=== PATIENT | female | born 1975 | race Caucasian/White ===

== ENCOUNTER → 2016-08-01 | Outpatient (CLI) | payer OTHER | LOC: CIMAGING 08:41 | PROVIDERS: ATTEND Physician Assistant Medical | DX: R10.11 Right upper quadrant pain (principal); K43.2 Incisional hernia without obstruction or gangrene | CPT/HCPCS: 76700-PO ==

== ENCOUNTER → 2016-08-07 | Outpatient (CLI) | payer OTHER | LOC: FIMAGING 10:09 | PROVIDERS: ATTEND Internal Medicine | DX: K82.8 Other specified diseases of gallbladder (principal) | CPT/HCPCS: 78227; A9537 ==

== ENCOUNTER 2016-08-09 05:44 | Day surgery (SDC) | payer OTHER ==
[2016-08-09] MEDS ORDERED: cefOXitin SODIUM 1 GM in D5W 50 ML IV ONE (06:00)
[2016-08-09] MEDS ORDERED: CEFAZOLIN 1 GM/DEXTROSE/50 ML BAG IV ONE (06:09)
[2016-08-09] MEDS ORDERED: LIDOCAINE 1% 2 ML INJ ONE (06:09)
[2016-08-09] MEDS ORDERED: ceFAZolin 1 GM/5 ML SYR ONE (06:44)
[2016-08-09] MEDS ORDERED: HEPARIN 1000 UNIT/1 ML MDV ONE (06:44)
[2016-08-09] MEDS ORDERED: BUPIVACAINE 0.5% 30 ML SDV ONE (06:44)
[2016-08-09] MEDS ORDERED: MIDAZOLAM 2 MG/2 ML VIAL ONE (07:12)
[2016-08-09] MEDS ORDERED: SCOPOLAMINE HYDROBROMIDE 1.5 MG PATCH TD ONE ×2 (07:12→07:30)
[2016-08-09 07:13] LABS: ALBUMIN 4.5 g/dL (3.5-5.0); BILIRUBIN,TOTAL 1.3 mg/dL (0.1-1.4); BILIRUBIN-CONJUGATED 0.3 mg/dL (0.0-0.5); TOTAL PROTEIN 7.3 g/dL (6.3-8.2)
[2016-08-09] MEDS ORDERED: ONDANSETRON 4 MG/2 ML VIAL ONE (07:16)
[2016-08-09] MEDS ORDERED: ROCURONIUM 50 MG/5 ML VIAL ONE (07:16)
[2016-08-09] MEDS ORDERED: PROPOFOL/EMULSION 500 MG/50 ML BOTTLE IV ONE (07:16)
[2016-08-09] MEDS ORDERED: DEXAMETHASONE 4 MG/ML VIAL ONE (07:16)
[2016-08-09] MEDS ORDERED: PROPOFOL 200 MG/20 ML VIAL ONE (07:16)
[2016-08-09] MEDS ORDERED: GLYCOPYRROLATE 0.2 MG/1 ML VIAL ONE (07:17)
[2016-08-09] MEDS ORDERED: ceFAZolin 1 GM VIAL ONE (07:48)
[2016-08-09] MEDS ORDERED: SUGAMMADEX SODIUM 200 MG/2 ML VIAL IVP ONE (09:10)
[2016-08-09] MEDS ORDERED: fentaNYL 100 MCG/2 ML INJ ONE (09:46)
[2016-08-09] MEDS ORDERED: OXYCODONE/APAP 5/325 TAB ONE ×2 (09:52→10:47)
[2016-08-09] MEDS ORDERED: HYDROmorphONE/DILAUDID 2 MG/ML INJ ONE (10:48)
== END 2016-08-09 12:05 | disposition home or self-care (01) ==
LOC: FSGY 05:44
PROVIDERS: ATTEND Surgery
DX: K80.10 Calculus of gallbladder with chronic cholecystitis without obstruction (principal); K43.2 Incisional hernia without obstruction or gangrene
CPT/HCPCS: C1781; J0690; J0697; J1100; J1170; J2250; J2405; J2704; J3010

== ENCOUNTER 2016-10-16 17:54 | Emergency (ER) | payer OTHER ==
--- NOTE | 2016-10-16 17:57 | EDPHY ---
H & P HPI/ROS: HPI CHIEF COMPLAINT: Right lower extremity swelling and pain HISTORY OF PRESENT ILLNESS: This patient very pleasant 41-year-old female denies any daily medical problems she did recently have gallbladder surgery and inguinal hernia repair by Dr. Mcneil, she presents to the ER with pain in her calf,and thigh pain. She has noticed this discomfort for the past 3 days. She denies any chest pain or shortness of breath. Denies pleuritic pain. Denies fever. Additionally she noticed some red blotchy areas upper right lower extremity. They are in clusters. There has 3 separate discrete areas. They are painful to palpation. No fever. No additional rash. She is concerned she may have a DVT and came to the emergency room for evaluation. Past Medical History: No medical history Past Surgical History: Recent gallbladder removal and inguinal hernia repair Social History: Denies daily use drugs alcohol tobacco products. Family History: Noncontributory ROS REVIEW OF SYSTEMS: A comprehensive 10 point review of systems is otherwise negative aside from elements mentioned in the history of present illness. Exam Constitutional appears well nontoxic, triage nursing summary reviewed, vital signs reviewed, awake/alert. Eyes normal conjunctivae and sclera, EOMI, PERRLA. HENT normal inspection, atraumatic, moist mucus membranes, no epistaxis, neck supple/ no meningismus, no raccoon eyes. Respiratory clear to auscultation bilaterally, normal breath sounds, no respiratory distress, no wheezing. Cardiovascular rate normal, regular rhythm, no murmur, no edema, distal pulses normal. Gastrointestinal soft, non-tender, no rebound, no guarding, normal bowel sounds, no distension, no pulsatile mass. Genitourinary no CVA tenderness. Musculoskeletal right lower extremity: Neurovascular intact good distal pulse , good cap refill, mild tender palpation posterior calf and popliteal space, and posterior thigh, additionally there are erythematous painful lesions maculopapular discrete circular in Three discreet areas. 1. popliteal space, Two. right lower calf and 3. lower calf, No blisters, no vesicles. Painful to palpation. No warmth, no petechia. no midline vertebral tenderness, full range of motion, no calf swelling, no tenderness of extremities, no meningismus, good pulses, neurovascularly intact. Skin pink, warm, & dry, no rash, skin atraumatic. Neurologic awake, alert and oriented x 3, AAOx3, moves all 4 extremities equally, motor intact, sensory intact, CN II-XII intact, normal cerebellar, normal vision, normal speech. Psychiatric normal mood/affect. Heme/Lymph/Immune no lymphadenopathy. Differential Diagnosis: Includes but is not limited to in a particular order DVT, leg infection, cellulitis, Zoster Medical Decision Making: Plan for this patient ultrasound right lower extremity rule out DVT. Re-evaluation: Ultrasound reviewed no DVT. Updated patient. Spoke with patient's who is a local physician. Went over treatment plan with anti-inflammatory pain medicine Keflex. Agreeable with this plan understands return emergency room if there is worsening pain, swelling, redness, fever or any questions or concerns. Source: Patient - Personal History Tetanus Vaccine Date: < 10 YEARS - Medical/Surgical History Hx Asthma: No Hx Chronic Respiratory Disease: No Hx Diabetes: No Hx Cardiac Disease: No Hx Renal Disease: No Hx Cirrhosis: No Hx Alcoholism: No Hx HIV/AIDS: No Hx Splenectomy or Spleen Trauma: No Other PMH: 08/04 ROBOTIC HYSTERECTOMY, MENINGITIS - Social History Smoking Status: Never smoked Constitutional: Initial Vital Signs Temperature (C) 36.9 C 10/16/16 18:06 Heart Rate 98 10/16/16 18:06 Respiratory Rate 18 10/16/16 18:06 Blood Pressure 131/80 H 10/16/16 18:06 O2 Sat (%) 97 10/16/16 18:06 O2 Delivery Mode Room Air Allergies/Adverse Reactions: hydrocodone bitartrate [From Vicodin] Allergy (Severe, Verified 10/16/16 18:05) SWOLLEN TONGUE Home Medications: Medication Instructions Recorded Cephalexin [Keflex] 500 mg PO Q6H #28 cap 10/16/16 Ibuprofen [Motrin (*)] 800 mg PO Q6-8PRN #30 tab 10/16/16 Medical Decision Making - Diagnostics Imaging Results: Imaging Impressions Extremity Venous Study 10/16/16 18:04 Impression: No deep venous thrombosis right leg. Findings and recommendations discussed with Emergency Department physician, Kody Dey MD at 18:39 hour, 10/16/2016. Final report concurs with initial preliminary interpretation. Departure - Departure Disposition: Home, Routine, Self-Care Clinical Impression: Leg pain Qualifiers: Laterality: right Qualified Code(s): M79.604 - Pain in right leg Condition: Good Instructions: Leg Pain (ED) Additional Instructions: 1. Return emergency room if you have any worsening symptoms questions or concerns includes worsening leg pain swelling or fever. Referrals: Herson Solano MD [Primary Care Provider] - As per Instructions Prescriptions: Cephalexin [Keflex] 500 mg PO Q6H #28 cap Ibuprofen [Motrin (*)] 800 mg PO Q6-8PRN #30 tab
[2016-10-16 18:07] VITALS: TEMP 98.4
[2016-10-16] MEDS ORDERED: CEPHALEXIN 500MG PREPACK#4 BTL TAKEHOME ONE (19:01)
[2016-10-16] MEDS ORDERED: CEPHALEXIN 500 MG CAP PO ONE (19:01)
[2016-10-16] MEDS ORDERED: IBUPROFEN 200 MG TAB PO ONE (19:01)
[2016-10-16 19:12] VITALS: BP 128/74; PULSE 89; RESP 16; O2SAT 98
== END 2016-10-16 19:12 | disposition home or self-care (01) ==
LOC: CED 17:54
DX: M79.604 Pain in right leg (principal)
CPT/HCPCS: 93971-PO

== ENCOUNTER → 2017-04-23 | Outpatient (CLI) | payer OTHER | LOC: CIMAGING 18:40 | PROVIDERS: ATTEND Internal Medicine | DX: R05 Cough (principal); R07.9 Chest pain, unspecified | CPT/HCPCS: 71046-PO ==

== ENCOUNTER → 2018-03-09 | Outpatient (CLI) | payer OTHER | LOC: CIMAGING 08:55 | PROVIDERS: ATTEND Internal Medicine | DX: R10.2 Pelvic and perineal pain (principal) | CPT/HCPCS: 76856-PO ==

== ENCOUNTER → 2018-03-27 | Outpatient (CLI) | payer OTHER ==
[~2018-03-27] MED LIST: IOPAMIDOL (ISOVUE-370) 150 ML BTL IV ONE
== END ==
LOC: CIMAGING 11:12
PROVIDERS: ATTEND Internal Medicine
DX: N83.292 Other ovarian cyst, left side (principal); K59.00 Constipation, unspecified; Z90.49 Acquired absence of other specified parts of digestive tract; Z90.710 Acquired absence of both cervix and uterus
CPT/HCPCS: 74177-PO; Q9967

== ENCOUNTER 2018-04-17 15:53 | Emergency (ER) | payer OTHER ==
[2018-04-17] MEDS ORDERED: LORazepam 2 MG/ML INJ IVP ONE (16:18)
[2018-04-17] MEDS ORDERED: DIAZEPAM 5 MG TAB PO ONE ×2 (16:20→17:01)
[2018-04-17] MEDS ORDERED: fentaNYL 100 MCG/2 ML INJ IVP ONE ×3 (16:21→17:00)
--- NOTE | 2018-04-17 16:24 | EDPHY ---
H & P Stated Complaint: back pain Time Seen by Provider: 04/17/18 15:59 HPI/ROS: 43 yo F presents complaining of severe lower back pain that began suddenly while transferring a basket of laundry. She felt a sudden pop and then had severe lower back pain. No numbness or tingling in extremities. No loss of bowel or bladder control. Patient denies prior history of back issues or back pain. Review of systems As per HPI-lower back pain General no fever no chills no weakness HEENT no eye pain no eye discharge. No eye redness, no sore throat Respiratory no cough, no shortness of breath Cardiac no chest pain, no peripheral edema GI no abdominal pain, no diarrhea, no constipation, no nausea, no vomiting no flank pain, no hematuria, no dysuria Musculoskeletal no myalgias, no joint pain Heme no easy bruising, no easy bleeding Endo no polyuria, no polydipsia Skin no rashes, no pruritus Neuro no syncope, no dizziness, no headaches Psych is no suicidal ideation, no homicidal ideation Source: Patient Exam Limitations: No limitations - Personal History LMP (Females 10-55): Hysterectomy Current Tetanus/Diphtheria Vaccine: Yes Current Tetanus Diphtheria and Acellular Pertussis (TDAP): Yes Tetanus Vaccine Date: < 10 YEARS - Medical/Surgical History Hx Asthma: No Hx Chronic Respiratory Disease: No Hx Diabetes: No Hx Cardiac Disease: No Hx Renal Disease: No Hx Cirrhosis: No Hx Alcoholism: No Hx HIV/AIDS: No Hx Splenectomy or Spleen Trauma: No Other PMH: 6/4 ROBOTIC HYSTERECTOMY, MENINGITIS - Family History Significant Family History: No pertinent family hx - Social History Smoking Status: Never smoked Alcohol Use: None Drug Use: None - Physical Exam Exam: 43-year-old female alert and oriented in severe distress secondary to back pain Atraumatic normocephalic Neck supple Lungs clear to auscultation bilaterally Heart regular rate and rhythm Abdomen nondistended NABS Back-no step-offs, positive midline lumbar spine tenderness, positive paralumbar tenderness with a mild scoliosis suggestive of back spasm No rash, no ecchymosis, no swelling Extremities No cyanosis clubbing or edema DTRs intact bilaterally Constitutional: Initial Vital Signs Temperature (C) 37.0 C 04/17/18 16:09 Heart Rate 94 04/17/18 16:09 Respiratory Rate 20 04/17/18 16:09 Blood Pressure 131/82 H 04/17/18 16:09 O2 Sat (%) 99 04/17/18 16:09 O2 Delivery Mode Room Air Allergies/Adverse Reactions: hydrocodone bitartrate [From Vicodin] Allergy (Severe, Verified 04/17/18 16:08) SWOLLEN TONGUE Home Medications: Medication Instructions Recorded Ibuprofen [Motrin (*)] 800 mg PO Q6-8PRN #30 tab 10/16/16 Diazepam [Valium 5 MG (*)] 5 mg PO TID PRN #15 tab 04/17/18 oxyCODONE/APAP 5/325 [Percocet 1 - 2 tab PO Q12H PRN #20 tab 04/17/18 5/325 (*)] Medical Decision Making - Diagnostics Imaging Results: Imaging Impressions Lumbar Spine X-Ray 04/17/18 17:25 Impression:Stable lumbar spine radiographs. No acute fracture identified. Degenerative disk disease at L5-S1. ED Course/Re-evaluation: Pt seen and evaluated for severe lower back pain sudden onset. Exam consistent with back muscle spasm. Pt with severe pain so we got iv access to give pain medication and a muscle relaxant. pt given tordol 15mg, diazepam 5 mg ivp, fentanyl 50 mcg Impression Lower back muscle spasm Plan dc home rx diazepam rx percocet f/u pcp Differential Diagnosis: Differential diagnosis considered but not limited to Back muscle spasm, disc herniation, lower back pain, vertebral compression fracture, kidney stones - Data Points Medications Given: Discontinued Medications Diazepam (Valium) 2.5 mg PO EDNOW ONE Stop: 04/17/18 16:21 Last Admin: 04/17/18 17:06 Dose: Not Given Diazepam (Valium) 2.5 mg PO EDNOW ONE Stop: 04/17/18 17:02 Last Admin: 04/17/18 17:06 Dose: Not Given Diazepam (Valium) 2.5 mg IVP EDNOW ONE Stop: 04/17/18 17:02 Last Admin: 04/17/18 17:07 Dose: 2.5 mg Fentanyl (Sublimaze) 25 mcg IVP EDNOW ONE Stop: 04/17/18 16:22 Last Admin: 04/17/18 16:40 Dose: 25 mcg Fentanyl (Sublimaze) 25 mcg IVP EDNOW ONE Stop: 04/17/18 17:00 Last Admin: 04/17/18 17:04 Dose: 25 mcg Fentanyl (Sublimaze) 25 mcg IVP EDNOW ONE Stop: 04/17/18 17:01 Last Admin: 04/17/18 17:15 Dose: Not Given Ketorolac Tromethamine (Toradol) 15 mg IVP EDNOW ONE Stop: 04/17/18 17:01 Last Admin: 04/17/18 17:13 Dose: 15 mg Ondansetron HCl (Zofran) 4 mg IVP EDNOW ONE Stop: 04/17/18 17:15 Last Admin: 04/17/18 17:15 Dose: 4 mg Departure - Departure Disposition: Home, Routine, Self-Care Clinical Impression: Lower back pain, Spasm of back muscles Condition: Good Instructions: Acute Low Back Pain (ED), Muscle Spasm (ED) Referrals: Pam Armendariz MD [Primary Care Provider] - As per Instructions Prescriptions: Diazepam [Valium 5 MG (*)] 5 mg PO TID PRN #15 tab PRN Reason: Spasms oxyCODONE/APAP 5/325 [Percocet 5/325 (*)] 1 - 2 tab PO Q12H PRN #20 tab PRN Reason: Pain, Severe
[2018-04-17] MEDS ORDERED: DIAZEPAM 5 MG/ML 1 ML SYR ONE ×2 (16:30→16:51)
[2018-04-17] MEDS ORDERED: ONDANSETRON 4 MG/2 ML VIAL ONE (16:41)
[2018-04-17] MEDS ORDERED: fentaNYL 100 MCG/2 ML INJ ONE (16:51)
[2018-04-17] MEDS ORDERED: KETOROLAC 15 MG/1 ML SDV IVP ONE (17:00)
[2018-04-17] MEDS ORDERED: DIAZEPAM 5 MG/ML 1 ML SYR IVP ONE (17:01)
[2018-04-17] MEDS ORDERED: ONDANSETRON 4 MG/2 ML VIAL IVP ONE (17:14)
[2018-04-17 18:28] VITALS: BP 113/67
== END 2018-04-17 18:18 | disposition home or self-care (01) ==
LOC: CED 15:53
DX: M54.9 Dorsalgia, unspecified (principal); M62.830 Muscle spasm of back; X50.1XXA Overexertion from prolonged static or awkward postures, initial encounter; Y93.E2 Activity, laundry; Y92.008 Other place in unspecified non-institutional (private) residence as the place of occurrence of the external cause
CPT/HCPCS: 72100-PO; 96374-ER; 96375-ER; 99284-ER; J1885; J2405; J3010; J3360